=== PATIENT | female | born 1995 | race Caucasian/White ===

== ENCOUNTER 2018-12-23 01:12 | Emergency (ER) | payer OTHER ==
[~2018-12-23] VITALS: Ht 167.6 cm; Wt 99.3 kg
[2018-12-23 02:05] VITALS: BP 130/72
== END 2018-12-23 02:05 | disposition home or self-care (01) ==
LOC: ED 01:12
DX: L03.115 Cellulitis of right lower limb (principal)
CPT/HCPCS: J0696

== ENCOUNTER 2019-05-31 10:09 | Emergency (ER) | payer OTHER ==
[~2019-05-31] VITALS: Ht 167.6 cm; Wt 93.9 kg
[2019-05-31 11:13] VITALS: Ht 167.6 cm; Wt 93.9 kg
[2019-05-31 12:36] VITALS: BP 121/74
== END 2019-05-31 12:36 | disposition home or self-care (01) ==
LOC: ED 10:09
DX: H10.32 Unspecified acute conjunctivitis, left eye (principal)

== ENCOUNTER 2019-09-15 16:34 | Emergency (ER) | payer OTHER ==
[~2019-09-15] VITALS: Ht 165.1 cm; Wt 94.8 kg
[2019-09-15 16:41] VITALS: Ht 165.1 cm; Wt 94.8 kg
[2019-09-15 17:07] VITALS: BP 116/72
== END 2019-09-15 17:07 | disposition home or self-care (01) ==
LOC: ED 16:34
DX: B34.9 Viral infection, unspecified (principal)